=== PATIENT | female | born 1985 | race Caucasian/White ===

== ENCOUNTER 2018-05-03 03:45 | Inpatient (IN) | payer OTHER ==
[2018-05-03] MEDS ORDERED: LACTATED RINGER'S 1,000 ML IV (04:15)
[2018-05-03] MEDS ORDERED: IBUPROFEN 600 MG TAB PO (04:30)
[2018-05-03] MEDS ORDERED: OXYTOCIN 30 UNITS/LR 500 ML IV ×3 (04:30→08:00)
[2018-05-03] MEDS ORDERED: LIDOCAINE 1% (MPF) 30 ML INJ INJ (04:30)
[2018-05-03] MEDS ORDERED: BUTORPHANOL 2 MG INJ IV (04:30)
[2018-05-03] MEDS ORDERED: MISOPROSTOL 200 MCG TAB PR ×2 (04:30→08:00)
[2018-05-03] MEDS ORDERED: METHYLERGONOVINE 0.2 MG INJ IM ×2 (04:30→05:30)
[2018-05-03] MEDS ORDERED: AMPICILLIN 2 GM/NS (PMX) 100 ML IV (04:30)
[2018-05-03] MEDS ORDERED: CARBOPROST 250 MCG INJ IM ×3 (04:30→08:00)
[2018-05-03] MEDS ORDERED: FENTAnyl 2MCG/ML-ROPIV 0.2% 0 ML (04:46)
[2018-05-03] MEDS: OXYTOCIN 30 UNITS/LR 500 ML IV ×4 (04:56→09:12)
[2018-05-03 04:57] LABS: ADD MAN DIFF? NO
[2018-05-03 05:01] LABS: BASOPHILS % 0.1 % (0.0-2.0); EOSINOPHILS % 0.1 % (0.0-7.0); HEMATOCRIT 38.6 % (37.0-47.0); HEMOGLOBIN 12.8 g/dl (12.0-16.0); LYMPHOCYTES # 1.4 10^3/ul (0.8-2.9); LYMPHOCYTES % 11.6 % (15.0-51.0); MEAN CORPUSCULAR HEMOGLOBIN 29.4 pg (29.0-33.0); MEAN CORPUSCULAR HGB CONC 33.2 g/dl (32.0-37.0); MEAN CORPUSCULAR VOLUME 88.5 fl (82.0-101.0); MEAN PLATELET VOLUME 11.2 fl (7.4-10.4); MONOCYTE # 0.6 10^3/ul (0.3-0.9); MONOCYTES % 4.7 % (0.0-11.0); NEUTROPHIL # 9.8 10^3/ul (1.6-7.5); NEUTROPHILS % 82.8 % (39.0-77.0); PLATELET COUNT 171 10^3/UL (140-415); RED BLOOD COUNT 4.36 10^6/ul (4.20-5.40); RED CELL DISTRIBUTION WIDTH 12.9 % (11.5-14.5)
[2018-05-03 05:01] LABS: WHITE BLOOD COUNT 11.9 10^3/ul (4.8-10.8)
[2018-05-03] MEDS: LACTATED RINGER'S 1,000 ML IV* ×2 (05:17→11:02)
[2018-05-03 05:20] LABS: INR 0.81; PROTIME 11.3 Sec (11.9-14.9); PT RATIO 0.9
[2018-05-03 05:21] LABS: PARTIAL THROMBOPLASTIN TIME 23.5 Sec (23.0-35.0)
[2018-05-03] MEDS ORDERED: IBUPROFEN 600 MG TAB (05:25)
[2018-05-03] MEDS: IBUPROFEN 600 MG TAB PO ×3 (05:29→18:01)
[2018-05-03] MEDS ORDERED: WITCH HAZEL/GLYCERIN PAD PR ×2 (05:30→08:00)
[2018-05-03] MEDS ORDERED: LANOLIN HPA 1 PKT TOP (05:30)
[2018-05-03] MEDS ORDERED: HYDROCODONE/APAP (5/325) TAB PO ×3 (05:30→08:00)
[2018-05-03 05:47] LABS: HEPATITIS B SURFACE ANTIGEN NEGATIVE (NEGATIVE)
[2018-05-03] MEDS: MISOPROSTOL 200 MCG TAB PR (06:45)
[2018-05-03] MEDS ORDERED: SENNA/DOCUSATE NA (8.6MG/50MG) TAB PO (08:00)
[2018-05-03] MEDS ORDERED: DIBUCAINE 1% 30 GM OINT TOP (08:00)
[2018-05-03] MEDS ORDERED: ONDANSETRON 4 MG TAB PO (08:00)
[2018-05-03] MEDS ORDERED: DIPHENHYDRAMINE 50 MG INJ IV (08:00)
[2018-05-03] MEDS ORDERED: ONDANSETRON 4 MG INJ IV (08:00)
[2018-05-03] MEDS ORDERED: MAGNESIUM HYDROXIDE 30ML CUP PO (08:00)
[2018-05-03] MEDS ORDERED: DIPHENHYDRAMINE 25 MG CAP PO (08:00)
[2018-05-03] MEDS ORDERED: BENZOCAINE 20% 56 ML SPRAY TOP (08:00)
[2018-05-03] MEDS ORDERED: LABETALOL 200 MG TAB PO (08:00)
[2018-05-03] MEDS ORDERED: NA PHOSPHATE/BIPHOS 133 ML ENEMA PR (08:00)
[2018-05-03] MEDS ORDERED: AMPICILLIN 1 GM/NS (PMX) 50 ML IV (08:30)
[2018-05-03] MEDS: LANOLIN HPA 1 PKT TOP (09:13)
[2018-05-03] MEDS: SENNA/DOCUSATE NA (8.6MG/50MG) TAB PO ×2 (09:13→21:32)
[2018-05-03 16:46] LABS: RAPID PLASMA REAGIN NONREACTIVE (NR)
[2018-05-04] MEDS: IBUPROFEN 600 MG TAB PO ×5 (00:29→23:42)
[2018-05-04 08:35] LABS: ADD MAN DIFF? NO
[2018-05-04 08:43] LABS: WHITE BLOOD COUNT 10.2 10^3/ul (4.8-10.8)
[2018-05-04 08:43] LABS: BASOPHILS % 0.3 % (0.0-2.0); EOSINOPHILS % 0.3 % (0.0-7.0); HEMATOCRIT 38.8 % (37.0-47.0); HEMOGLOBIN 12.7 g/dl (12.0-16.0); LYMPHOCYTES # 1.9 10^3/ul (0.8-2.9); LYMPHOCYTES % 18.7 % (15.0-51.0); MEAN CORPUSCULAR HEMOGLOBIN 29.5 pg (29.0-33.0); MEAN CORPUSCULAR HGB CONC 32.7 g/dl (32.0-37.0); MEAN CORPUSCULAR VOLUME 90.2 fl (82.0-101.0); MEAN PLATELET VOLUME 11.7 fl (7.4-10.4); MONOCYTE # 0.6 10^3/ul (0.3-0.9); MONOCYTES % 5.6 % (0.0-11.0); NEUTROPHIL # 7.5 10^3/ul (1.6-7.5); NEUTROPHILS % 74.1 % (39.0-77.0); PLATELET COUNT 165 10^3/UL (140-415); RED CELL DISTRIBUTION WIDTH 13.2 % (11.5-14.5)
[2018-05-04] MEDS: SENNA/DOCUSATE NA (8.6MG/50MG) TAB PO ×2 (08:46→21:15)
[2018-05-05] MEDS: IBUPROFEN 600 MG TAB PO ×2 (05:29→12:00)
[2018-05-05] MEDS: VARICELLA VACCINE LIVE/PF 1,350 UNIT/0.5 ML ML SC* (09:00)
[2018-05-05] MEDS: SENNA/DOCUSATE NA (8.6MG/50MG) TAB PO (09:31)
[2018-05-05] MEDS: MEASLES,MUMPS,RUBELLA VACCINE INJ SC* (09:48)
[2018-05-05] MEDS: DIPHTH/TET/ACEL PERTUSS (ADULT) 0.5 ML VIAL IM* (09:48)
== END 2018-05-05 14:27 | disposition home or self-care (01) | DRG 807 ==
LOC: OBT 03:45 → L-D 03:45 → OBT 04:05 → L-D 04:05 → PP1 08:28
PROVIDERS: Specialist
PROC: 10E0XZZ Delivery of Products of Conception, External Approach (ICD-10-PCS; principal; 2018-05-03)
DX: O62.3 Precipitate labor (principal); Z37.0 Single live birth; Z3A.38 38 weeks gestation of pregnancy
CPT/HCPCS: 85025; 85610; 85730; 86592; 86850; 86900; 86901; 87340; 90716